=== PATIENT | male | born 1960 | race Caucasian/White ===

== ENCOUNTER 2018-03-20 12:38 | Emergency (ER) | payer OTHER ==
[~2018-03-20] VITALS: Ht 177.8 cm; Wt 106.6 kg
[~2018-03-20 12:38] MED LIST: ALBU3IS INH; ALPR1 PO; AMIT50 PO; AMOCLA875 PO; ATOR20 PO; BACL20 PO; Bactrim Ds Tab1 EACH PO; Bactroban22 GM TOP; CEPH500 PO; DOCU100 PO; EZET10-80 PO; FLOVENT INH; FLUSAL5005 IH; FURO40 PO; Flomax0.4 MG PO; GABA600 PO; GEMF600 PO; GLIP10 PO; HIBICLENS120 ML EXT; HYDACE5 PO; HYDACE7.5 PO; IBUP800 PO; INSUASPI SC; INSULANI SUBQ; INSULANPEN SQ; Keflex500 MG PO; LISI10 PO; LISI20 PO; Monodox100 MG PO; Mupirocin22 GM TOP; NAPR500 PO; NITR100 PO; Norco 5-325 Ta1 EACH PO; OMEP20ER PO; OXYACE10 PO; OXYB5 PO; PENVK500 PO; PHENA100 PO; POTCHL10ER PO; Percocet 5-3251 EACH PO; ROSI4 PO; SULTRIDS PO; Silvadene20 GM TOP; TAMS.4ER PO; ZINC40TO TOP
[2018-03-20] MEDS ORDERED: Monodox100 MG PO (13:20)
== END 2018-03-20 13:26 | disposition home or self-care (01) ==
LOC: ER 12:38
DX: N48.22 Cellulitis of corpus cavernosum and penis (principal); E11.9 Type 2 diabetes mellitus without complications; J44.9 Chronic obstructive pulmonary disease, unspecified; F17.210 Nicotine dependence, cigarettes, uncomplicated; Z88.5 Allergy status to narcotic agent; Z88.8 Allergy status to other drugs, medicaments and biological substances; Z79.899 Other long term (current) drug therapy; Z79.4 Long term (current) use of insulin
CPT/HCPCS: 99282

== ENCOUNTER → 2020-05-07 | Outpatient (CLI) | payer OTHER ==
[2020-05-07 15:35] LABS: Appearance, Urine Hazy (Clear); Bilirubin, Urine Neg (Neg); Blood, Urine Neg (Neg); Color, Urine Yellow (P-Yellow); Glucose Qualitative, Urine Neg (Neg); Ketones, Urine Neg (Neg); Leukocyte Esterase, Urine 3+ (Neg); Nitrite, Urine Neg (Neg); Protein, Urine Neg (Neg); Urobilinogen, Urine NORM (Normal)
[2020-05-07 15:57] LABS: White Blood Cells, Urine 50-100 /hpf (0-5)
[2020-05-07 15:58] LABS: Bacteria Many /hpf; Red Blood Cells, Urine 0-2 /hpf (0-2); Squamous Epithelial Cells Few /hpf (Few)
== END | disposition home or self-care (01) ==
LOC: LAB 14:22 → LAB SHORT 14:22 → OLS 14:22
PROVIDERS: Internal Medicine
DX: R80.9 Proteinuria, unspecified (principal)
CPT/HCPCS: 81001; 82570; 84156; 87077; 87086; 87186

== ENCOUNTER 2020-09-04 09:54 | Emergency (ER) | payer OTHER ==
[~2020-09-04] VITALS: Ht 177.8 cm; Wt 95.2 kg
[2020-09-04] MEDS ORDERED: MUPIROCIN1 G1 TOP (10:22)
[2020-09-04] MEDS ORDERED: Bactrim Ds Tab1 EACH PO (10:22)
== END 2020-09-04 10:25 | disposition home or self-care (01) ==
LOC: ER 09:54
DX: T25.221A Burn of second degree of right foot, initial encounter (principal); E11.9 Type 2 diabetes mellitus without complications; J44.9 Chronic obstructive pulmonary disease, unspecified; F17.210 Nicotine dependence, cigarettes, uncomplicated; Z79.4 Long term (current) use of insulin; Z88.5 Allergy status to narcotic agent; Z79.899 Other long term (current) drug therapy; X12.XXXA Contact with other hot fluids, initial encounter
CPT/HCPCS: 99283

== ENCOUNTER 2020-10-16 00:23 | Day surgery (SDC) | payer OTHER ==
[~2020-10-16 00:23] MED LIST changes: +MUPIROCIN1 G1 TOP
== END 2020-10-16 23:05 | disposition home or self-care (01) ==
LOC: WOUND 00:23
DX: T25.221D Burn of second degree of right foot, subsequent encounter (principal); X12.XXXD Contact with other hot fluids, subsequent encounter; E78.5 Hyperlipidemia, unspecified; E11.22 Type 2 diabetes mellitus with diabetic chronic kidney disease; I12.0 Hypertensive chronic kidney disease with stage 5 chronic kidney disease or end stage renal disease; N18.6 End stage renal disease; E11.51 Type 2 diabetes mellitus with diabetic peripheral angiopathy without gangrene; J44.9 Chronic obstructive pulmonary disease, unspecified; F17.200 Nicotine dependence, unspecified, uncomplicated; F32.9 Major depressive disorder, single episode, unspecified; G62.9 Polyneuropathy, unspecified; T14.8XXS Other injury of unspecified body region, sequela; Z88.5 Allergy status to narcotic agent; Z79.4 Long term (current) use of insulin; Z21 Asymptomatic human immunodeficiency virus [HIV] infection status; Z98.1 Arthrodesis status
CPT/HCPCS: A9270

== ENCOUNTER 2020-10-23 00:44 | Day surgery (SDC) | payer OTHER | END 2020-10-23 23:00 | disposition home or self-care (01) | LOC: WOUND 00:44 | DX: T25.221D Burn of second degree of right foot, subsequent encounter (principal); E78.5 Hyperlipidemia, unspecified; E11.22 Type 2 diabetes mellitus with diabetic chronic kidney disease; N18.9 Chronic kidney disease, unspecified; M51.36 Other intervertebral disc degeneration, lumbar region; G62.89 Other specified polyneuropathies; I73.9 Peripheral vascular disease, unspecified; J44.9 Chronic obstructive pulmonary disease, unspecified; F17.200 Nicotine dependence, unspecified, uncomplicated; X08.8XXD Exposure to other specified smoke, fire and flames, subsequent encounter; Z88.6 Allergy status to analgesic agent | CPT/HCPCS: A9270 ==

== ENCOUNTER 2020-10-30 00:25 | Day surgery (SDC) | payer OTHER | END 2020-10-30 22:48 | disposition home or self-care (01) | LOC: WOUND 00:25 | DX: T25.221D Burn of second degree of right foot, subsequent encounter (principal); X12.XXXD Contact with other hot fluids, subsequent encounter; E78.5 Hyperlipidemia, unspecified; F17.200 Nicotine dependence, unspecified, uncomplicated; E11.22 Type 2 diabetes mellitus with diabetic chronic kidney disease; E11.51 Type 2 diabetes mellitus with diabetic peripheral angiopathy without gangrene; N18.9 Chronic kidney disease, unspecified; J44.9 Chronic obstructive pulmonary disease, unspecified; G62.89 Other specified polyneuropathies; Z87.828 Personal history of other (healed) physical injury and trauma | CPT/HCPCS: A9270 ==

== ENCOUNTER 2020-11-06 00:05 | Day surgery (SDC) | payer OTHER | END 2020-11-06 22:39 | disposition home or self-care (01) | LOC: WOUND 00:05 | DX: T25.221D Burn of second degree of right foot, subsequent encounter (principal); E78.5 Hyperlipidemia, unspecified; F17.200 Nicotine dependence, unspecified, uncomplicated; E11.22 Type 2 diabetes mellitus with diabetic chronic kidney disease; E11.42 Type 2 diabetes mellitus with diabetic polyneuropathy; E11.51 Type 2 diabetes mellitus with diabetic peripheral angiopathy without gangrene; N18.9 Chronic kidney disease, unspecified; M51.36 Other intervertebral disc degeneration, lumbar region; M43.10 Spondylolisthesis, site unspecified; J44.9 Chronic obstructive pulmonary disease, unspecified; Z87.828 Personal history of other (healed) physical injury and trauma; X12.XXXD Contact with other hot fluids, subsequent encounter; G62.89 Other specified polyneuropathies; T14.8XXS Other injury of unspecified body region, sequela; X58.XXXS Exposure to other specified factors, sequela | CPT/HCPCS: A9270 ==

== ENCOUNTER 2020-11-14 00:29 | Day surgery (SDC) | payer OTHER | END 2020-11-14 22:55 | disposition home or self-care (01) | LOC: WOUND 00:29 | DX: T25.221D Burn of second degree of right foot, subsequent encounter (principal); X12.XXXD Contact with other hot fluids, subsequent encounter; E78.5 Hyperlipidemia, unspecified; F17.200 Nicotine dependence, unspecified, uncomplicated; E11.22 Type 2 diabetes mellitus with diabetic chronic kidney disease; N18.9 Chronic kidney disease, unspecified; E11.51 Type 2 diabetes mellitus with diabetic peripheral angiopathy without gangrene; M51.36 Other intervertebral disc degeneration, lumbar region; M43.10 Spondylolisthesis, site unspecified; J44.9 Chronic obstructive pulmonary disease, unspecified; Z87.828 Personal history of other (healed) physical injury and trauma; G62.89 Other specified polyneuropathies; T14.8XXS Other injury of unspecified body region, sequela; X58.XXXS Exposure to other specified factors, sequela | CPT/HCPCS: A9270; G0463 ==

== ENCOUNTER 2020-11-20 00:38 | Day surgery (SDC) | payer OTHER | END 2020-11-20 22:41 | disposition home or self-care (01) | LOC: WOUND 00:38 | DX: T25.221A Burn of second degree of right foot, initial encounter (principal); E11.22 Type 2 diabetes mellitus with diabetic chronic kidney disease; E11.42 Type 2 diabetes mellitus with diabetic polyneuropathy; E11.51 Type 2 diabetes mellitus with diabetic peripheral angiopathy without gangrene; N18.9 Chronic kidney disease, unspecified; E78.5 Hyperlipidemia, unspecified; M47.816 Spondylosis without myelopathy or radiculopathy, lumbar region; M43.10 Spondylolisthesis, site unspecified; J44.9 Chronic obstructive pulmonary disease, unspecified; Z72.0 Tobacco use; X12.XXXA Contact with other hot fluids, initial encounter | CPT/HCPCS: A9270 ==

== ENCOUNTER 2021-01-13 13:23 | Emergency (ER) | payer OTHER ==
[~2021-01-13] VITALS: Ht 177.8 cm; Wt 86.2 kg
[2021-01-13] MEDS ORDERED: LIDO700A20 TOP (15:37)
[2021-01-13] MEDS ORDERED: HYDR1TAB94 PO (15:37)
== END 2021-01-13 15:33 | disposition home or self-care (01) ==
LOC: ER 13:23
DX: M25.552 Pain in left hip (principal); E11.9 Type 2 diabetes mellitus without complications; J44.9 Chronic obstructive pulmonary disease, unspecified; F17.210 Nicotine dependence, cigarettes, uncomplicated; Z79.4 Long term (current) use of insulin; Z88.5 Allergy status to narcotic agent; Z79.899 Other long term (current) drug therapy
CPT/HCPCS: 73502; 73562-LT; 99283-25

== ENCOUNTER → 2022-07-03 | Outpatient (CLI) | payer OTHER ==
[~2022-07-03] MED LIST changes: +HYDR1TAB94 PO; +LIDO700A20 TOP
== END | disposition home or self-care (01) ==
LOC: LAB SHORT 17:31 → LAB 17:31
DX: M96.1 Postlaminectomy syndrome, not elsewhere classified (principal)
CPT/HCPCS: 87070; 87205

== ENCOUNTER → 2022-07-06 | Outpatient (CLI) | payer OTHER ==
[2022-07-06 14:06] LABS: Source, Urine Voided
[2022-07-06 15:03] LABS: Appearance, Urine Cloudy (Clear); Bilirubin, Urine Neg (Neg); Blood, Urine 5+ (Neg); Color, Urine Amber (P-Yellow); Glucose Qualitative, Urine 4+ (Neg); Ketones, Urine 1+ (Neg); Leukocyte Esterase, Urine 3+ (Neg); Nitrite, Urine Pos (Neg); Protein, Urine 2+ (Neg); Urobilinogen, Urine 1+ (Normal)
[2022-07-06 15:30] LABS: Bacteria Many /hpf; Granular Casts 0-2 /lpf (0); Hyaline Casts 0-2 /lpf (0-2); Red Blood Cells, Urine TNTC /hpf (0-2); Squamous Epithelial Cells Few /hpf (Few); Transitional Epithelial Cells Rare /hpf (0-Rare); White Blood Cells, Urine TNTC /hpf (0-5)
== END ==
LOC: LAB 14:04 → LAB SHORT 14:04
PROVIDERS: Family Medicine
DX: N31.9 Neuromuscular dysfunction of bladder, unspecified (principal)
CPT/HCPCS: 81001; 87077; 87086; 87186

== ENCOUNTER → 2022-10-08 | Outpatient (CLI) | payer OTHER ==
[2022-10-08 19:01] LABS: BASOPHILS ABSOLUTE AUTO 0.04 K/mm3 (0.00-0.23); BASOPHILS PERCENT AUTO 1 % (0-2); EOSINOPHILS ABSOLUTE AUTO 0.11 K/mm3 (0.00-0.68); EOSINOPHILS PERCENT AUTO 2 % (0-6); Hematocrit 47.1 % (37.0-53.0); Hemoglobin 15.3 g/dL (13.5-17.5); IMMATURE GRAN ABSOLUTE AUTO 0.02 K/mm3 (0.00-0.10); IMMATURE GRAN PERCENT AUTO 0 % (0-1); LYMPHOCYTES ABSOLUTE AUTO 2.04 K/mm3 (0.84-5.20); LYMPHOCYTES PERCENT AUTO 29 % (21-46); MONOCYTES ABSOLUTE AUTO 0.55 K/mm3 (0.16-1.47); MONOCYTES PERCENT AUTO 8 % (4-13); Mean Corpuscular HGB Conc 32.5 g/dL (31.5-36.5); Mean Corpuscular Volume 86 fL (80-100); Mean Platelet Volume 11.1 fL (9.1-12.4); NEUTROPHILS ABSOLUTE AUTO 4.38 K/mm3 (1.96-9.15); NEUTROPHILS PERCENT AUTO 61 % (41-73); Platelet Count 186 K/mm3 (150-400); RDW Coefficient Variation 13.2 % (11.7-14.2); RDW Standard Deviation 42.1 fL (35.1-46.3); Red Blood Cell Count 5.47 M/mm3 (4.30-5.90); White Blood Cell Count 7.14 K/mm3 (4.00-11.30)
[2022-10-08 20:28] LABS: Creatinine, Urine Random 90.7 mg/dL (27.00-270.00); Microalb/Creat Ratio UR, Rand 149.945 mg/g (0.000-30.000)
[2022-10-08 22:16] LABS: Alanine Aminotransfer (ALT/SGP 18 U/L (12-78); Albumin, Blood 4.2 g/dL (3.4-5.0); Albumin/Globulin Ratio 1.1 (0.8-1.8); Alk Phos 112 U/L (50-136); Anion Gap 3 mmol/L (6-16); Aspartate Aminotrans (AST/SGOT 14 U/L (12-37); Bilirubin, Total 0.3 mg/dL (0.1-1.0); Blood Urea Nitrogen 20 mg/dL (8-24); Bun/Creatinine Ratio 29.9 (12.0-20.0); CO2, Blood 29 mmol/L (21-32); Calcium, Blood 9.5 mg/dL (8.5-10.1); Chloride, Blood 104 mmol/L (98-108); Creatinine, Blood 0.67 mg/dL (0.60-1.20); Globulin, Blood 3.8 g/dL (2.2-4.0); Glomerular Filtration Rate 105 (60-); Glucose, Blood 161 mg/dL (70-99); Potassium, Blood 3.8 mmol/L (3.5-5.5); Prostate Specific Antigen 0.323 ng/mL (0.000-4.000); Sodium, Blood 136 mmol/L (136-145)
== END | disposition home or self-care (01) ==
LOC: LAB SHORT 15:33 → LAB 15:33
PROVIDERS: Family Medicine
DX: E11.65 Type 2 diabetes mellitus with hyperglycemia (principal); R32 Unspecified urinary incontinence
CPT/HCPCS: 80053; 82043; 82570; 84153; 85025

== ENCOUNTER → 2023-08-03 | Outpatient (CLI) | payer OTHER ==
[~2023-08-03] MED LIST changes: +CEFP200 PO
== END ==
LOC: LAB 09:32 → LAB SHORT 09:32
DX: R30.0 Dysuria (principal)
CPT/HCPCS: 87077; 87086; 87186

== ENCOUNTER 2023-09-27 11:47 | Emergency (ER) | payer OTHER ==
[~2023-09-27] VITALS: Ht 177.8 cm; Wt 88.5 kg
[2023-09-27 12:27] VITALS: BP 138/78
== END 2023-09-27 12:33 | disposition home or self-care (01) ==
LOC: ER 11:47
DX: L85.9 Epidermal thickening, unspecified (principal); E11.9 Type 2 diabetes mellitus without complications; J44.9 Chronic obstructive pulmonary disease, unspecified; F17.210 Nicotine dependence, cigarettes, uncomplicated; Z87.828 Personal history of other (healed) physical injury and trauma; Z88.5 Allergy status to narcotic agent; Z88.8 Allergy status to other drugs, medicaments and biological substances; Z79.899 Other long term (current) drug therapy
CPT/HCPCS: 99282

== ENCOUNTER 2024-02-24 14:43 | Emergency (ER) | payer OTHER ==
[~2024-02-24] VITALS: Ht 177.8 cm; Wt 83.9 kg
[~2024-02-24 14:43] MED LIST changes: +IPRAT-ALBUT 0.5-3 ML INH; +TAMSULOSIN HCL0.4 M1 PO
[2024-02-24 14:49] VITALS: BP 111/77
== END 2024-02-24 16:00 | disposition home or self-care (01) ==
LOC: ER 14:43
DX: M96.89 Other intraoperative and postprocedural complications and disorders of the musculoskeletal system (principal); F17.210 Nicotine dependence, cigarettes, uncomplicated; E11.9 Type 2 diabetes mellitus without complications; J44.9 Chronic obstructive pulmonary disease, unspecified; I10 Essential (primary) hypertension; Z76.5 Malingerer [conscious simulation]; Z79.899 Other long term (current) drug therapy; Z88.5 Allergy status to narcotic agent
CPT/HCPCS: 99282

== ENCOUNTER → 2024-09-19 | Outpatient (CLI) | payer OTHER | END | disposition home or self-care (01) | LOC: LAB SHORT 17:34 → LAB 17:34 | DX: R30.0 Dysuria (principal); N39.0 Urinary tract infection, site not specified | CPT/HCPCS: 87077; 87086; 87186 ==

== ENCOUNTER → 2024-12-01 | Outpatient (CLI) | payer OTHER | LOC: LAB 14:27 → LAB SHORT 14:27 | DX: R30.0 Dysuria (principal) | CPT/HCPCS: 87077; 87086; 87186 ==

== ENCOUNTER → 2025-06-28 | Outpatient (CLI) | payer OTHER | LOC: LAB 12:52 → LAB SHORT 12:52 | DX: R30.0 Dysuria (principal) | CPT/HCPCS: 87077; 87086; 87186 ==